=== PATIENT | female | born 1990 | race Hispanic/Latino ===

== ENCOUNTER 2021-10-31 19:28 | Inpatient (IN) | payer SELFPAY ==
[2021-10-31] MEDS ORDERED: oxyCODONE /ACETAMINOPHEN 5-325MG TAB PO ONE (23:46)
[2021-10-31] MEDS ORDERED: NEOMY 3.5 MG/BACIT 400 UNITS/POLY B 5000 UNITS/GM OINT PACKET TP ONE (23:47)
--- NOTE | 2021-11-01 00:31 | Emergency Department Report ---
ED Lower Extremity HPI - General Chief Complaint: Extremity Injury, Lower Stated Complaint: RT FOOT INJURY AT WORK Time Seen by Provider: 10/31/21 23:30 Source: patient Mode of arrival: Ambulatory Limitations: No Limitations - History of Present Illness Initial Comments: Patient is a 31-year-old female presents emergency room complaints of a fall from a ladder that occurred earlier today. Patient states that she was up approximately 20 feet on a ladder when she slipped and fell. She states that she landed directly on her feet and then had a inversion injury of her right ankle. She states that she went to [facility] and was advised that she needed to be seen in the ER due to ankle fracture. She denies any numbness or weakness and is able to move the toes. She denies ever injuring in the past. She denies any other injury. She denies hitting her head, loss of consciousness, vomiting, vision changes, numbness, weakness, bowel or bladder incontinence, back pain, neck pain, rib pain, shortness of breath, chest pain. No allergies to medications. She states her last tetanus immunization was approximately 2 years ago. She states her last menstrual cycle was 3 weeks ago and denies any possibility of . - Related Data Allergies Allergy/AdvReac Type Severity Reaction Status Date / Time No Known Allergies Allergy Unverified 10/31/21 20:58 ED Review of Systems ROS: Stated complaint: RT FOOT INJURY AT WORK Other details as noted in HPI Comment: All other systems reviewed and negative ED Past Medical Hx - Past Medical History Previous Medical History?: No - Surgical History Past Surgical History?: No ED Physical Exam - General Limitations: No Limitations General appearance: alert, in no apparent distress - Head Head exam: Present: atraumatic, normocephalic - Eye Eye exam: Present: normal appearance - ENT ENT exam: Present: mucous membranes moist - Neck Neck exam: Present: normal inspection, full ROM. Absent: tenderness, meningismus - Respiratory Respiratory exam: Present: normal lung sounds bilaterally. Absent: respiratory distress, wheezes, rales, rhonchi, stridor, chest wall tenderness, accessory muscle use, decreased breath sounds, prolonged expiratory - Cardiovascular Cardiovascular Exam: Present: regular rate, normal rhythm, normal heart sounds. Absent: systolic murmur, diastolic murmur, rubs, gallop - Extremities Exam Extremities exam: Present: other (edema present and ttp to the right ankle and foot, 0.5 cm laceration to the right lateral ankle, no active bleeding, decreased ROM, able to move toes, neurovascularly intact) - Neurological Exam Neurological exam: Present: alert, oriented X3, CN II-XII intact, normal gait. Absent: motor sensory deficit - Psychiatric Psychiatric exam: Present: normal affect, normal mood - Skin Skin exam: Present: warm, dry ED Course Vital Signs 10/31/21 11/01/21 11/01/21 20:56 02:00 05:17 Temperature 97.8 F Pulse Rate 93 H 77 88 Respiratory 18 17 17 Rate Blood Pressure 128/74 Blood Pressure 140/83 130/83 [Right] O2 Sat by Pulse 100 99 99 Oximetry - Consultations Consultation #1: 11/01/21 00:[address] Bass, orthopedic doctor regarding patient presentation and results in he reviewed imaging, advised to place patient in splint make patient n.p.o. and he will perform surgery tomorrow morning, he advised to reach out to kiln head house operator to put patient on OR board for tomorrow 11/01/21 00:45 I discussed with Ms. Hummel, kiln head house operator and gave patient's information and she is going to place her on the OR board for tomorrow 11/01/21 00:[address] Van, hospitalist regarding patient presentation and results, he will accept and resume care patient will admit to hospitalist service ED Lower Extremity MDM - Radiology Data Radiology results: report reviewed Ordering Physician: SANDRA OZUNA Date of Service: 10/31/21 Procedure(s): XR foot 2V RT Accession Number(s): [id number] cc: SANDRA OZUNA Fluoro Time In Minutes: RIGHT FOOT 2 VIEW(S) INDICATION / CLINICAL INFORMATION: fall from ladder, right ankle/foot pain COMPARISON: Right ankle same date FINDINGS: BONES / JOINT(S): Redemonstrated is the previously described fracture at the right ankle combination of the tibial metaphysis and comminuted intra-articular involvement of the tibial plafond. Additional displaced fracture of the fibula. The right foot demonstrates no additional injuries. SOFT TISSUES: No significant abnormality. ADDITIONAL FINDINGS: None. IMPRESSION: 1. No acute osseous findings involving the right foot. Redemonstrated right ankle fracture as detailed. Signer Name: Chris Pacheco II, MD Signed: 11/01/2021 12:33 AM Workstation Name: [id number] Transcribed By: GUIDO Dictated By: CHRIS PACHECO II, MD Electronically Authenticated By: CHRIS PACHECO II, MD Signed Date/Time: 11/01/2132 DD/ TD/TT: Ordering Physician: SANDRA OZUNA Date of Service: 10/31/21 Procedure(s): XR ankle 3+V RT Accession Number(s): [id number] cc: SANDRA OZUNA Fluoro Time In Minutes: RIGHT ANKLE 4 VIEW(S) INDICATION / CLINICAL INFORMATION: fall from ladder, right ankle/foot pain COMPARISON: None available. FINDINGS: BONES / JOINT(S): Severely comminuted fracture of the lower tibial metaphysis and plafond are demonstrated with accompanying transverse minimally comminuted fracture of the lower fibula at the level of the tibial plafond. Widening of the ankle mortise is present. SOFT TISSUES: Moderate bimalleolar soft tissue swelling. ADDITIONAL FINDINGS: None. IMPRESSION: Comminuted mildly displaced fracture of the lower tibial metaphysis with comminuted intra-articular involvement of the plafond. Transverse minimally comminuted fracture of the lower fibula at the level of the tibial plafond with associated minimal widening of the ankle mortise. Signer Name: Chris Pacheco II, MD Signed: 11/01/2021 12:32 AM Workstation Name: [id number] Transcribed By: GUIDO Dictated By: CHRIS PACHECO II, MD Electronically Authenticated By: CHRIS PACHECO II, MD Signed Date/Time: 11/01/2131 DD/ TD/TT: - Medical Decision Making Patient is a 31-year-old female presents emergency room complaints of a fall from a ladder that occurred earlier today. Patient states that she was up approximately 20 feet on a ladder when she slipped and fell. She states that she landed directly on her feet and then had a inversion injury of her right ankle. She states that she went to [facility] and was advised that she needed to be seen in the ER due to ankle fracture. She denies any numbness or weakness and is able to move the toes. She denies ever injuring in the past. She denies any other injury. She denies hitting her head, loss of consciousness, vomiting, vision changes, numbness, weakness, bowel or bladder incontinence, back pain, neck pain, rib pain, shortness of breath, chest pain. No allergies to medications. She states her last tetanus immunization was approximately 2 years ago. She states her last menstrual cycle was 3 weeks ago and denies any possibility of . Vitals are normal. On exam:edema present and ttp to the right ankle and foot, 0.5 cm laceration to the right lateral ankle, no active bleeding, decreased ROM, able to move toes, neurovascularly intact. X-r ay right ankle Comminuted mildly displaced fracture of the lower tibial metaphysis with comminuted intra-articular involvement of the plafond. Transverse minimally comminuted fracture of the lower fibula at the level of the tibial plafond with associated minimal widening of the ankle mortise. X-ray right foot 1. No acute osseous findings involving the right foot. Redemonstrated right ankle fr acture as detailed. Discussed case with Dr. Christopher Riley, ER attending who recommended orthopedic consultation. Spoke with Dr. Bass, orthopedic doctor regarding patient presentation and results in he reviewed imaging, advised to place patient in splint make patient n.p.o. and he will perform surgery tomorrow morning, he advised to reach out to kiln head house operator to put patient on OR board for tomorrow. I discussed with Ms. Hummel, kiln head house operator and gave patient's information and she is going to place her on the OR board for tomorrow. Discussed case with Dr. Van, hospitalist regarding patient presentation and results, he will accept and resume care patient will admit to hospitalist service. Patient given Ancef and pain medication while in the emergency department. Discussed all findings with patient who is agreeable with admission. Critical care attestation.: If time is entered above; I have spent that time in minutes in the direct care of this critically ill patient, excluding procedure time. ED Disposition Clinical Impression: Tibia/fibula fracture Qualifiers: Encounter type: initial encounter Fracture type: open Open fracture type: open type I or II Laterality: right Qualified Code(s): S82.201B - Unspecified fracture of shaft of right tibia, initial encounter for open fracture type I or II Disposition: 02 [facility] Is pt being admited?: Yes Does the pt Need Aspirin: No Condition: Stable Time of Disposition: 00:46
--- NOTE | 2021-11-01 00:36 | XRay Report ---
RIGHT ANKLE 4 VIEW(S) INDICATION / CLINICAL INFORMATION: fall from ladder, right ankle/foot pain COMPARISON: None available. FINDINGS: BONES / JOINT(S): Severely comminuted fracture of the lower tibial metaphysis and plafond are demonst rated with accompanying transverse minimally comminuted fracture of the lower fibula at the level of the tibial plafond. Widening of the ankle mortise is present. SOFT TISSUES: Moderate bimalleolar soft tissue swelling. ADDITIONAL FINDINGS: None. IMPRESSION: Comminuted mildly displaced fracture of the lower tibial metaphysis with comminuted intra-articular i nvolvement of the plafond. Transverse minimally comminuted fracture of the lower fibula at the level of the tibial plafond with associated minimal widening of the ankle mortise. Signer Name: Peter Mcclelland II, MD Signed: 11/01/2021 12:32 AM Workstation [facility]: [id number]
--- NOTE | 2021-11-01 00:37 | XRay Report ---
RIGHT FOOT 2 VIEW(S) INDICATION / CLINICAL INFORMATION: fall from ladder, right ankle/foot pain COMPARISON: Right ankle same date FINDINGS: BONES / JOINT(S): Redemonstrated is the previously described fracture at the right ankle combination of the tibial metaphysis and comminuted intra-articular involvement of the tibial plafond. Additional displaced fracture of the fibula. The right foot demonstrates no additional injuries. SOFT TISSUES: No significant abnormality. ADDITIONAL FINDINGS: None. IMPRESSION: 1. No acute osseous findings involving the right foot. Redemonstrated right ankle fracture as detaile d. Signer Name: Peter Mcclelland II, MD Signed: 11/01/2021 12:33 AM Workstation Name: [id number]
[2021-11-01] MEDS ORDERED: fentaNYL 100 MCG/2 ML INJ IV ONE (01:03)
[2021-11-01] MEDS ORDERED: ONDANSETRON 4 MG/2 ML INJ IV PRN (03:31)
[2021-11-01] MEDS ORDERED: ACETAMINOPHEN 325 MG TAB PO PRN (03:31)
[2021-11-01] MEDS ORDERED: ALBUTEROL 2.5 MG/3 ML NEBU IH PRN (03:31)
--- NOTE | 2021-11-01 03:38 | History and Physical Report ---
History of Present Illness Date of examination: 11/01/21 Date of admission: 11/01/21 Chief complaint: Right lower extremity injury Status post fall History of present illness: 31-year-old female with no significant past medical history was brought to the hospital because of a fall from a ladder that occurred earlier today. Patient states that she was up approximately 20 feet on a ladder when she slipped and fell. She states that she landed directly on her feet and then had a inversion injury of her right ankle. She states that she went to [facility] and was advised that she needed to be seen in the ER due to ankle fracture. She denies any numbness or weakness and is able to move the toes. She denies ever injuring in the past. She denies any other injury. She denies hitting her head, loss of consciousness, vomiting, vision changes, numbness, weakness, bowel or bladder incontinence, back pain, neck pain, rib pain, shortness of breath, chest pain. No allergies to medications. She states her last tetanus immunization was approximately 2 years ago. She states her last menstrual cycle was 3 weeks ago and denies any possibility of . In the emergency room patient is found to have right tibial fibular fracture/right ankle fracture. Subsequently Case discussed with Dr. Bass orthopedic surgeon, and patient is going for surgery in the morning Medications and Allergies Allergies Allergy/AdvReac Type Severity Reaction Status Date / Time No Known Allergies Allergy Unverified 10/31/21 20:58 Active Meds: Active Medications Acetaminophen (Acetaminophen 325 Mg Tab) 650 mg PO Q4H PRN PRN Reason: Pain MILD(1-3)/Fever >100.5/JACQUES Albuterol (Albuterol 2.5 Mg/3 Ml Nebu) 2.5 mg IH Q3HRT PRN PRN Reason: Shortness Of Breath Albuterol/Ipratropium (Ipratropium/Albuterol Sulfate 3 Ml Ampul.Neb) 1 ampul IH Q6HRT HANH Famotidine (Famotidine 20 Mg/2 Ml Inj) 20 mg IV BID HANH Heparin Sodium (Porcine) (Heparin 5,000 Unit/1 Ml Vial) 5,000 unit SUB-Q Q12HR HANH Hydromorphone HCl (Hydromorphone 1 Mg/1 Ml Inj) 0.5 mg IV Q3H PRN PRN Reason: Pain , Severe (7-10) Dextrose/Sodium Chloride (D5/0.45ns) 1,000 mls @ 100 mls/hr IV DIRECT HANH Morphine Sulfate (Morphine 2 Mg/1 Ml Inj) 2 mg IV Q4H PRN PRN Reason: Pain, Moderate (4-6) Ondansetron HCl (Ondansetron 4 Mg/2 Ml Inj) 4 mg IV Q8H PRN PRN Reason: Nausea And Vomiting Sodium Chloride (Sodium Chloride 0.9% 10 Ml Flush Syringe) 10 ml IV BID HANH Sodium Chloride (Sodium Chloride 0.9% 10 Ml Flush Syringe) 10 ml IV PRN PRN PRN Reason: LINE FLUSH Review of Systems All systems: negative Constitutional: other (Fall) Musculoskeletal: frequent falls (Right lower extremity injury), fractures, other Exam - Constitutional Vitals: Temp Pulse Resp BP Pulse Ox 97.8 F 93 H 18 128/74 100 10/31/21 20:56 10/31/21 20:56 10/31/21 20:56 10/31/21 20:56 10/31/21 20:56 General appearance: Present: no acute distress, well-nourished - EENT Eyes: Present: PERRL ENT: hearing intact, clear oral mucosa - Neck Neck: Present: supple, normal ROM - Respiratory Respiratory effort: normal Respiratory: bilateral: CTA - Cardiovascular Heart Sounds: Present: S1 & S2. Absent: rub, click - Extremities Extremities: pulses symmetrical, No edema Extremity abnormal: other (edema present and ttp to the right ankle and foot, 0.5 cm laceration to the right lateral ankle, no active bleeding, decreased ROM, able to move toes, neurovascularly intact)) Peripheral Pulses: within normal limits - Abdominal General gastrointestinal: Present: soft, non-tender, non-distended, normal bowel sounds Female genitourinary: Present: normal - Integumentary Integumentary: Present: clear, warm, dry - Musculoskeletal Musculoskeletal: gait normal, strength equal bilaterally - Psychiatric Psychiatric: appropriate mood/affect, intact judgment & insight - Neurologic Neurologic: CNII-XII intact, moves all extremities Assessment and Plan VTE prophylaxis?: Chemical Plan of care discussed with patient/family: Yes - Patient Problems (1) Tibia/fibula fracture Current Visit: Yes Status: Acute Qualifiers: Encounter type: initial encounter Fracture type: open Open fracture type: open type I or II Laterality: right Qualified Code(s): S82.201B - Unspecified fracture of shaft of right tibia, initial encounter for open fracture type I or II; S82.401B - Unspecified fracture of shaft of right fibula, initial encounter for open fracture type I or II Plan to address problem: Admit the patient to the medical floor. NPO. D5 half-normal saline at the rate of 100 cc/h. Morphine 2 mg IV every 4 hours as needed. Ancef 1 g IV every 8 hours. Will consult orthopedic surgeon for evaluation and possible surgery in the morning. Recheck CBC BMP in the morning (2) Fall Current Visit: Yes Status: Acute Plan to address problem: Patient is on fall precaution. PT evaluation (3) DVT prophylaxis Current Visit: Yes Status: Acute Plan to address problem: Heparin 5000 units subcu every 12 hours for DVT prophylaxis. Pepcid 20 mg IV every 12 hours for GI prophylaxis. Patient is a full code
[2021-11-01] MEDS: D5W/0.45% NACL 1,000 ML IV SCH (09:07)
[2021-11-01] MEDS: IPRATROPIUM/ALBUTEROL SULFATE 3 ML AMPUL.NEB IH SCH ×2 (09:39→14:31)
[2021-11-01] MEDS: HYDROmorphone 1 MG/1 ML INJ IV PRN ×2 (10:34→16:37)
--- NOTE | 2021-11-01 12:27 | Consultation ---
History of Present Illness - [facility] Consult date: 11/01/21 Consult reason: fracture History of present illness: ORTHOPAEDIC CONSULT Assessment: 1. Complex atypical medial malleolus fracture with significant intra-articular component along the plafond with comminution in the distal tibia. 2. Lateral mallwolus fx with minimal displacement r Recommendation: 1. Surgical stabilization with ORIF for both medial / distal tibia fractures and stabilization for the lateral malleolus fracture as well ; 2. Physical therapy with partial weightbearing on the right lower extremity x 6 weeks; 3. Appropriate pain management; 4. Possible discharge home tomorrow; will require outpatient physical therapy for the next 6 weeks following surgery Discussion: This is a 28 yo, young adult female lying in hospital bed with spli nt on right lower extremity in no acute distress. She has no complaints of pain presently. She is able to wiggle all the toes. Sensation is intact. The dressing is not changed. Ankle range of motion is unable to be tested. The x-rays show a complex distal tibia/medial malleolus fracture with both a horizontal fracture all the way across at the metadiaphysis with communication to a lower fracture line that actually enters the plafond and exits the superior medial malleolus. There appears to be comminution with no significant displacement. Lateral malleolus shows the distal fragment displaced medially. Single fracture line at the level of the joint. Medications and Allergies Allergies Allergy/AdvReac Type Severity Reaction Status Date / Time No Known Allergies Allergy Unverified 10/31/21 20:58 Home Medications Medication Instructions Recorded Confirmed Last Taken Type No Known Home Medications [No 11/01/21 11/01/21 Unknown History Reported Home Medications] Active Meds: Active Medications Acetaminophen (Acetaminophen 325 Mg Tab) 650 mg PO Q4H PRN PRN Reason: Pain MILD(1-3)/Fever >100.5/JACQUES Albuterol (Albuterol 2.5 Mg/3 Ml Nebu) 2.5 mg IH Q3HRT PRN PRN Reason: Shortness Of Breath Albuterol/Ipratropium (Ipratropium/Albuterol Sulfate 3 Ml Ampul.Neb) 1 ampul IH Q6HRT COUNT INCLUDES THE [facility] Last Admin: 11/01/21 09:39 Dose: Not Given Famotidine (Famotidine 20 Mg/2 Ml Inj) 20 mg IV BID COUNT INCLUDES THE [facility] Heparin Sodium (Porcine) (Heparin 5,000 Unit/1 Ml Vial) 5,000 unit SUB-Q Q12HR COUNT INCLUDES THE [facility] Hydromorphone HCl (Hydromorphone 1 Mg/1 Ml Inj) 0.5 mg IV Q3H PRN PRN Reason: Pain , Severe (7-10) Last Admin: 11/01/21 10:34 Dose: 0.5 mg Dextrose/Sodium Chloride (D5/0.45ns) 1,000 mls @ 100 mls/hr IV DIRECT HANH Last Admin: 11/01/21 09:07 Dose: 100 mls/hr Morphine Sulfate (Morphine 2 Mg/1 Ml Inj) 2 mg IV Q4H PRN PRN Reason: Pain, Moderate (4-6) Ondansetron HCl (Ondansetron 4 Mg/2 Ml Inj) 4 mg IV Q8H PRN PRN Reason: Nausea And Vomiting Sodium Chloride (Sodium Chloride 0.9% 10 Ml Flush Syringe) 10 ml IV BID COUNT INCLUDES THE [facility] Last Admin: 11/01/21 10:35 Dose: 10 ml Sodium Chloride (Sodium Chloride 0.9% 10 Ml Flush Syringe) 10 ml IV PRN PRN PRN Reason: LINE FLUSH
--- NOTE | 2021-11-01 14:55 | Anesthesia Consultation ---
Anesthesia Consult and Med Hx Date of service: 11/01/21 - Airway Anesthetic Teeth Evaluation: Poor, Chipped (some chipped, missing teeth) ROM Head & Neck: Adequate Mental/Hyoid Distance: Adequate Mallampati Class: Class II Intubation Access Assessment: Probably Good - Pre-Operative Health Status ASA Pre-Surgery Classification: ASA2 Proposed Anesthetic Plan: General - Pulmonary Hx Smoking: Yes (1/2 pack/day x 15 years) - Central Nervous System Hx Back Pain: No (right ankle fracture) Hx Psychiatric Problems: No
--- NOTE | 2021-11-01 14:57 | Anesthesia Day of Surgery ---
Anesthesia Day of Surgery - Day of Surgery Patient Examined: Yes Patient H&P Reviewed: Yes Patient is NPO: Yes
[2021-11-01] MEDS: HEPARIN 5,000 UNIT/1 ML VIAL SUB-Q SCH ×2 (16:36→22:13)
[2021-11-01] MEDS: FAMOTIDINE 20 MG/2 ML INJ IV SCH ×2 (16:37→22:13)
--- NOTE | 2021-11-01 18:36 | Progress Note ---
Assessment and Plan Assessment and plan: --Right lower tibia/fibula fracture Current Visit: Yes Status: Acute Complex atypical medial malleolus fracture: with significant intra-articular involving distal tibia and lateral malleolus fracture with minimal displacement Orthopedic evaluated and recommended surgical stabilization and ORIF for both medial and distal tibial fracture and stabilization for the lateral malleolus fracture as well, Followed by physical therapy However unable to schedule today due to OR scheduling Patient will be scheduled for procedure tomorrow N.p.o. from midnight Postoperative care and PT OT evaluation after surgery --H/O fall Current Visit: Yes Status: Acute Patient is on fall precaution. PT, OT evaluation For surgical procedure --Ongoing tobacco use; Current Visit: Yes Status: Acute Smoking cessation counseling Risks and consequences of long-term smoking discussed with the patient Had many questions answered all of them Smoking cessation counseling +25 minutes --DVT prophylaxis--advance care planning Current Visit: Yes Status: Acute Hold Heparin 5000 units subcu every 12 hours pending procedure SCDs Prolonged care 35 minutes --Advance care planning; I discussed in detail with the patient, patient's condition, tests and reports I also explained orthopedic evaluation, recommendation, possible surgical procedure tomorrow I discussed postoperative care, I discussed rehabilitation, physical therapy, Occupational Therapy post procedure I discussed risks and consequences of ongoing tobacco use, I discussed high risk for coronary artery disease, lung cancer, COPD I discussed smoking cessation, advised nicotine patch as needed Patient verbalized understanding, had many questions answered all of them Additional time +35 minutes History Interval history: I have seen and examined the patient at the bedside Patient's chart and medications reviewed Patient had history of fall and sustained a tibial fracture Complex atypical medial malleolus fracture with significant intra-articular involving distal tibia and lateral malleolus fracture with minimal displacement Orthopedic evaluated and recommended surgical stabilization and ORIF for both medial and distal tibial fracture and stabilization for the lateral malleolus fracture as well Followed by physical therapy Hospitalist Physical - Constitutional Vitals: Temp Pulse Resp BP Pulse Ox 97.7 F 82 16 136/92 99 11/01/21 13:49 11/01/21 13:49 11/01/21 13:49 11/01/21 13:49 11/01/21 13:49 General appearance: Present: no acute distress, well-nourished - EENT Eyes: Present: PERRL, EOM intact - Neck Neck: Present: supple, normal ROM - Respiratory Respiratory effort: normal Respiratory: bilateral: diminished, negative: rales, rhonchi, wheezing - Cardiovascular Rhythm: regular Heart Sounds: Present: S1 & S2 - Extremities Extremities: abnormal (Fracture right ankle[lower end of tibia-fibula] dressing in place) - Abdominal General gastrointestinal: soft, non-tender, non-distended, normal bowel sounds - Integumentary Integumentary: Present: clear (A day), warm (GI started clear liquids adding Dr. Pacheco is not planning any endoscopy bronchoscopy because of Covid or something else that is why he said he will not is no new episodes and Dr. Dr. Chan also signed off so I started with clear liquids advancing tomorrow PT OT evaluation 55 still above you so step) - Psychiatric Psychiatric: appropriate mood/affect, cooperative - Neurologic Neurologic: moves all extremities Results Mcdonough/IV: Voiding Method Toilet Active Medications - Current Medications Current Medications: Generic Name Dose Route Start Last Admin Trade Name Freq PRN Reason Stop Dose Admin Acetaminophen 650 mg 11/01/21 03:31 Acetaminophen 325 Mg Tab PO Q4H PRN Pain MILD(1-3)/Fever >100.5/JACQUES Albuterol 2.5 mg 11/01/21 03:31 Albuterol 2.5 Mg/3 Ml Nebu IH Q3HRT PRN Shortness Of Breath Albuterol/Ipratropium 1 ampul 11/01/21 08:00 11/01/21 14:31 Ipratropium/Albuterol Sulfate 3 Ml Ampul.Neb IH Not Given Q6HRT HANH Famotidine 20 mg 11/01/21 10:00 11/01/21 16:37 Famotidine 20 Mg/2 Ml Inj IV 20 mg BID HANH Administration Heparin Sodium (Porcine) 5,000 unit 11/01/21 10:00 11/01/21 16:36 Heparin 5,000 Unit/1 Ml Vial SUB-Q 5,000 unit Q12HR HANH Administration Hydromorphone HCl 0.5 mg 11/01/21 03:31 11/01/21 16:37 Hydromorphone 1 Mg/1 Ml Inj IV 0.5 mg Q3H PRN Administration Pain , Severe (7-10) Dextrose/Sodium Chloride 1,000 mls @ 100 mls/hr 11/01/21 04:00 11/01/21 09:07 D5/0.45ns IV 100 mls/hr DIRECT HANH Administration Morphine Sulfate 2 mg 11/01/21 03:31 Morphine 2 Mg/1 Ml Inj IV Q4H PRN Pain, Moderate (4-6) Ondansetron HCl 4 mg 11/01/21 03:31 Ondansetron 4 Mg/2 Ml Inj IV Q8H PRN Nausea And Vomiting Sodium Chloride 10 ml 11/01/21 10:00 11/01/21 10:35 Sodium Chloride 0.9% 10 Ml Flush Syringe IV 10 ml BID HANH Administration Sodium Chloride 10 ml 11/01/21 03:31 Sodium Chloride 0.9% 10 Ml Flush Syringe IV PRN PRN LINE FLUSH
[2021-11-01] MEDS: MORPHINE 2 MG/1 ML INJ IV PRN (23:56)
[2021-11-02] MEDS: IPRATROPIUM/ALBUTEROL SULFATE 3 ML AMPUL.NEB IH SCH ×4 (01:47→20:04)
[2021-11-02] MEDS: HYDROmorphone 1 MG/1 ML INJ IV PRN ×2 (02:29→05:27)
[2021-11-02 08:01] LABS: Basophils % (Auto) 0.5 % (0.0-1.8); Eosinophils # (Auto) 0.1 K/mm3 (0.0-0.4); Eosinophils % (Auto) 1.2 % (0.0-4.3); Hemoglobin 11.8 gm/dl (10.1-14.3); Lymphocytes # (Auto) 1.5 K/mm3 (1.2-5.4); Lymphocytes % (Auto) 17.9 % (13.4-35.0); Monocytes # (Auto) 0.6 K/mm3 (0.0-0.8); Monocytes % (Auto) 6.7 % (0.0-7.3)
[2021-11-02 08:26] LABS: BUN/Creatinine Ratio 24; Blood Urea Nitrogen 12 mg/dL (7-17); Calcium 8.3 mg/dL (8.4-10.2); Hemolysis Index 6
[2021-11-02 09:36] LABS: Hematocrit 36.3 % (30.3-42.9); Mean Corpuscular HGB Conc 33 % (30-34); Mean Corpuscular Volume 89 fl (79-97); Platelet Count 261 K/mm3 (140-440); Red Blood Count 4.09 M/mm3 (3.65-5.03); Red Cell Distribution Width 13.8 % (13.2-15.2)
--- NOTE | 2021-11-02 09:52 | Progress Note ---
Assessment and Plan Assessment and plan: --Right lower tibia/fibula fracture Current Visit: Yes Status: Acute Complex atypical medial malleolus fracture: with significant intra-articular inv olving distal tibia and lateral malleolus fracture with minimal displacement Orthopedic evaluated and recommended surgical stabilization and ORIF for both medial and distal tibial fracture and stabilization for the lateral malleolus fracture as well, Followed by physical therapy However unable to schedule today due to OR scheduling Patient will be scheduled for procedure tomorrow N.p.o. from midnight Postoperative care and PT OT evaluation after surgery --H/O fall Current Visit: Yes Status: Acute Patient is on fall precaution. PT, OT evaluation For surgical procedure --Ongoing tobacco use; Current Visit: Yes Status: Acute Smoking cessation counseling Risks and consequences of long-term smoking discussed with the patient Had many questions answered all of them Smoking cessation counseling +25 minutes --DVT prophylaxis--advance care planning Current Visit: Yes Status: Acute Hold Heparin 5000 units subcu every 12 hours pending procedure SCDs Prolonged care 35 minutes --Advance care planning; I discussed in detail with the patient, patient's condition, tests and reports I also explained orthopedic evaluation, recommendation, possible surgical procedure tomorrow I discussed postoperative care, I discussed rehabilitation, physical therapy, Occupational Therapy post procedure I discussed risks and consequences of ongoing tobacco use, I discussed high risk for coronary artery disease, lung cancer, COPD I discussed smoking cessation, advised nicotine patch as needed Patient verbalized understanding, had many questions answered all of them Additional time +35 minutes 11/02/2021; patient scheduled for surgical stabilization and ORIF Follow surgical procedure and recommendations Continue current management History Interval history: Patient scheduled for ORIF and internal fixation of ankle today Patient has history of right lower tibia fibular fracture secondary to fall Patient feels better complains of some pain Patient is n.p.o. status Hospitalist Physical - Constitutional Vitals: Temp Pulse Resp BP Pulse Ox 98.4 F 106 H 19 134/81 100 11/02/21 05:08 11/02/21 08:17 11/02/21 08:17 11/02/21 05:08 11/02/21 08:18 General appearance: Present: no acute distress, well-nourished - EENT Eyes: Present: PERRL, EOM intact - Neck Neck: Present: supple, normal ROM - Respiratory Respiratory effort: normal Respiratory: bilateral: diminished, negative: rales, rhonchi, wheezing - Cardiovascular Rhythm: regular Heart Sounds: Present: S1 & S2 - Extremities Extremities: no ischemia, No edema, abnormal (Right ankle increasing) - Abdominal General gastrointestinal: soft, non-tender, non-distended, normal bowel sounds - Integumentary Integumentary: Present: clear, warm - Psychiatric Psychiatric: appropriate mood/affect, cooperative - Neurologic Neurologic: moves all extremities Results - Labs CBC & Chem 7: 11/02/21 07:30 11/02/21 07:30 Labs: Laboratory Last Values WBC 8.6 K/mm3 (4.5-11.0) 11/02/21 07:30 RBC 4.09 M/mm3 (3.65-5.03) 11/02/21 07:30 Hgb 11.8 gm/dl (10.1-14.3) 11/02/21 07:30 Hct 36.3 % (30.3-42.9) 11/02/21 07:30 MCV 89 fl (79-97) 11/02/21 07:30 MCH 29 pg (28-32) 11/02/21 07:30 MCHC 33 % (30-34) 11/02/21 07:30 RDW 13.8 % (13.2-15.2) 11/02/21 07:30 Plt Count 261 K/mm3 (140-440) 11/02/21 07:30 Lymph % (Auto) 17.9 % (13.4-35.0) 11/02/21 07:30 [place] % (Auto) 6.7 % (0.0-7.3) 11/02/21 07:30 Eos % (Auto) 1.2 % (0.0-4.3) 11/02/21 07:30 Baso % (Auto) 0.5 % (0.0-1.8) 11/02/21 07:30 Lymph # (Auto) 1.5 K/mm3 (1.2-5.4) 11/02/21 07:30 [place] # (Auto) 0.6 K/mm3 (0.0-0.8) 11/02/21 07:30 Eos # (Auto) 0.1 K/mm3 (0.0-0.4) 11/02/21 07:30 Baso # (Auto) 0.0 K/mm3 (0.0-0.1) 11/02/21 07:30 Seg Neutrophils % 73.7 % (40.0-70.0) H 11/02/21 07:30 Seg Neutrophils # 6.3 K/mm3 (1.8-7.7) 11/02/21 07:30 Sodium 141 mmol/L (137-145) 11/02/21 07:30 Potassium 3.8 mmol/L (3.6-5.0) 11/02/21 07:30 Chloride 103.9 mmol/L (98-107) 11/02/21 07:30 Carbon Dioxide 24 mmol/L (22-30) 11/02/21 07:30 Anion Gap 17 mmol/L 11/02/21 07:30 BUN 12 mg/dL (7-17) 11/02/21 07:30 Creatinine 0.5 mg/dL (0.6-1.2) L 11/02/21 07:30 Estimated GFR > 60 ml/min 11/02/21 07:30 BUN/Creatinine Ratio 24 % 11/02/21 07:30 Glucose 98 mg/dL (65-100) 11/02/21 07:30 Calcium 8.3 mg/dL (8.4-10.2) L 11/02/21 07:30 Mcdonough/IV: Voiding Method Toilet Active Medications - Current Medications Current Medications: Generic Name Dose Route Start Last Admin Trade Name Freq PRN Reason Stop Dose Admin Acetaminophen 650 mg 11/01/21 03:31 Acetaminophen 325 Mg Tab PO Q4H PRN Pain MILD(1-3)/Fever >100.5/JACQUES Albuterol 2.5 mg 11/01/21 03:31 Albuterol 2.5 Mg/3 Ml Nebu IH Q3HRT PRN Shortness Of Breath Albuterol/Ipratropium 1 ampul 11/01/21 08:00 11/02/21 08:16 Ipratropium/Albuterol Sulfate 3 Ml Ampul.Neb IH 1 ampul Q6HRT HANH Administration Famotidine 20 mg 11/01/21 10:00 11/01/21 22:13 Famotidine 20 Mg/2 Ml Inj IV 20 mg BID HANH Administration Heparin Sodium (Porcine) 5,000 unit 11/01/21 10:00 11/01/21 22:13 Heparin 5,000 Unit/1 Ml Vial SUB-Q 5,000 unit Q12HR HANH Administration Hydromorphone HCl 0.5 mg 11/01/21 03:31 11/02/21 05:27 Hydromorphone 1 Mg/1 Ml Inj IV 0.5 mg Q3H PRN Administration Pain , Severe (7-10) Dextrose/Sodium Chloride 1,000 mls @ 100 mls/hr 11/01/21 04:00 11/01/21 09:07 D5/0.45ns IV 100 mls/hr DIRECT HANH Administration Morphine Sulfate 2 mg 11/01/21 03:31 11/01/21 23:56 Morphine 2 Mg/1 Ml Inj IV 2 mg Q4H PRN Administration Pain, Moderate (4-6) Ondansetron HCl 4 mg 11/01/21 03:31 Ondansetron 4 Mg/2 Ml Inj IV Q8H PRN Nausea And Vomiting Sodium Chloride 10 ml 11/01/21 10:00 11/01/21 22:13 Sodium Chloride 0.9% 10 Ml Flush Syringe IV 10 ml BID HANH Administration Sodium Chloride 10 ml 11/01/21 03:31 Sodium Chloride 0.9% 10 Ml Flush Syringe IV PRN PRN LINE FLUSH
[2021-11-02] MEDS: HEPARIN 5,000 UNIT/1 ML VIAL SUB-Q SCH ×2 (10:02→23:01)
[2021-11-02] MEDS: FAMOTIDINE 20 MG/2 ML INJ IV SCH ×2 (10:03→23:01)
[2021-11-02] MEDS ORDERED: NEOMY 40 MG/POLYMYXIN B 200,000 UNITS/ML (GU) AMPULE IR ONE ×2 (10:44→11:59)
[2021-11-02] MEDS ORDERED: fentaNYL 100 MCG/2 ML INJ ONE (11:02)
[2021-11-02] MEDS ORDERED: propofoL 200 MG/20 ML VIAL IV ONE (11:02)
[2021-11-02] MEDS ORDERED: LIDOCAINE MPF (2%) 20 MG/1 ML VIAL 5 ML ONE (11:02)
[2021-11-02] MEDS ORDERED: MIDAZOLAM 2 MG/2 ML INJ ONE (11:02)
[2021-11-02] MEDS ORDERED: KETAMINE/STERILE WATER 50 MG/ML SYRINGE ONE (11:03)
[2021-11-02] MEDS ORDERED: ONDANSETRON 4 MG/2 ML INJ ONE (11:03)
[2021-11-02] MEDS ORDERED: dexAMETHasone 20 MG/5 ML VIAL ONE (11:03)
[2021-11-02] MEDS ORDERED: SODIUM CHLORIDE 0.9% IRR 1,500 ML BOTTLE IR ONE (11:59)
[2021-11-02] MEDS ORDERED: LACTATED RINGERS 1,000 ML ONE (12:52)
[2021-11-02] MEDS ORDERED: oxyCODONE /ACETAMINOPHEN 5-325MG TAB PO PRN (13:10)
--- NOTE | 2021-11-02 13:25 | Post Anesthesia Evaluation ---
- Post Anesthesia Evaluation Patient Participated: Yes Airway Patent: Yes Stable Respiratory Function: Yes Nausea/Vomiting: No Temp > 96.8F: Yes Pain Manageable: Yes Adequeate Hydration: Yes Anesthesia Complications: No Block Receding Appropriately: Not Applicable Patient on Ventilator: No
--- NOTE | 2021-11-02 13:49 | XRay Report ---
INTRAOPERATIVE FLUOROSCOPY: RIGHT ANKLE INDICATION / CLINICAL INFORMATION: RT ANKLE FRACTURE. TECHNIQUE: Intraoperative spot images were obtained during the procedure. FINDINGS: Intraoperative radiographs from fixation for right ankle fracture. Fluoroscopy Time: 0.5 minute. Fluoroscopy Images: 3. Signer Name: Yossi Mitchell DO Signed: 11/02/2021 1:45 PM Workstation Name: [email or web address] ([id number]
[2021-11-02] MEDS ORDERED: HYDROmorphone 1 MG/1 ML INJ IV PRN (14:00)
--- NOTE | 2021-11-02 14:05 | Operative Report ---
Operative Report Operative Report: Preop diagnosis : 1. Complex Distal tibia fracture with Medial malleolar fracture incl. plafond fracture with comminution, Right ankle 2. transverse fracture lateral malleolus minimal displacement, RIGHT ankle Postop diagnosis: Same 1. Same Procedure: Closed reduction and Application of Ex-Fix device ([employer]) Surgeon: Diallo Bass MD undertaker assistant: none Anesthesia: General with LMA Details of operative technique: Patient was brought from the floor to the holding area and then prepared and taken to the operating room without difficulty. She was placed in the supine position on the OR table. General anesthesia was administered utilizing an LMA. Pressure points were well-padded. The right lower extremity was then prepped and draped in usual sterile fashion with ChloraPrep solution from the toes to the knee. A timeout was then called by the circulating nurse and once again the correct site was identified. C arm images were utilized throughout the case. C arm fluoroscopy images showed what appeared to be a comminuted distal tibia fracture with an oblique fracture line just above the medial malleolus proceeding down to the plafond entering the joint. There was a small nondisplaced fracture line seen within the metadiaphysis of the distal tibia. Minimal displacement. The fibula showed a distal transverse fracture in the lateral malleolus at the level of the joint line with minimal displacement. Fracture was manipulated by applying longitudinal traction and slight medial thrust with C arm images showing acceptable alignment. There was no further widening of the fracture line at the plafond. It was therefore decided that a external fixator device would be utilized to best stabilize this fracture. Utilizing the external FIX system made by [employer], a single 5mm calcaneal threaded pin was placed in the calcaneus appropriately under fluoroscopic control. 2 other separate proximal pins were placed (5mm ) into the anterior crest of the midshaft tibial diaphysis. Parallel bars were then placed from the to upper pins down to the calcaneal pins forming a triangle while traction and a close reduction maneuver were carried out with the ophthalmology assistant holding until all of the bars were clamped and tightened. AP/ lateral /mortise views were taken which showed excellent maintenance of the alignment for the distal tibia/plafond fracture. Final tightening of all screws was then secured utilizing a custom made wrench. It should also be noted that a semicircle lauren was placed posteriorly to act as a kickstand to protect against heel/foot bedsores. Pin sites were then dressed with Xeroform dressing and 4 x 4 gauzes followed by a Kerlix wrap from the toes to the upper tibia. This was also covered with an James wrap and the pins were all covered with soft plastic stoppers. Final x-rays were taken and saved. These showed excellent maintenance of the reduction. The patient was then awakened and taken to recovery room in excellent condition. Estimated blood loss: Negligible Drains : None Complications: None Tourniquet time: Not utilized
[2021-11-02] MEDS: MORPHINE 2 MG/1 ML INJ IV PRN ×2 (16:45→23:05)
[2021-11-03] MEDS: IPRATROPIUM/ALBUTEROL SULFATE 3 ML AMPUL.NEB IH SCH ×4 (02:58→21:33)
[2021-11-03] MEDS: MORPHINE 2 MG/1 ML INJ IV PRN (04:17)
[2021-11-03] MEDS: D5W/0.45% NACL 1,000 ML IV SCH (04:19)
[2021-11-03] MEDS: HEPARIN 5,000 UNIT/1 ML VIAL SUB-Q SCH ×2 (09:47→22:48)
[2021-11-03] MEDS: FAMOTIDINE 20 MG/2 ML INJ IV SCH ×2 (09:47→22:48)
--- NOTE | 2021-11-03 12:15 | Progress Note ---
Assessment and Plan Assessment and plan: Complex Distal tibia fracture with Medial malleolar fracture incl. plafond fracture with comminution, Right ankle 2transverse fracture lateral malleolus minimal displacement RIGHT ankle Postop diagnosis: Same 1. Same Procedure: Closed reduction and Application of Ex-Fix device ([place]) --Right lower tibia/fibula fracture Current Visit: Yes Status: Acute Complex atypical medial malleolus fracture: with significant intra-articular involving distal tibia and lateral malleolus fracture with minimal displacement Orthopedic evaluated and recommended surgical stabilization and ORIF for both medial and distal tibial fracture and stabilization for the lateral malleolus fracture as well, Followed by physical therapy However unable to schedule today due to OR scheduling Patient will be scheduled for procedure tomorrow N.p.o. from midnight Postoperative care and PT OT evaluation after surgery --H/O fall Current Visit: Yes Status: Acute Patient is on fall precaution. PT, OT evaluation For surgical procedure --Ongoing tobacco use; Current Visit: Yes Status: Acute Smoking cessation counseling Risks and consequences of long-term smoking discussed with the patient Had many questions answered all of them Smoking cessation counseling +25 minutes --DVT prophylaxis--advance care planning Current Visit: Yes Status: Acute Hold Heparin 5000 units subcu every 12 hours pending procedure SCDs Prolonged care 35 minutes --Advance care planning; I discussed in detail with the patient, patient's condition, tests and reports I also explained orthopedic evaluation, recommendation, possible surgical procedure tomorrow I discussed postoperative care, I discussed rehabilitation, physical therapy, Occupational Therapy post procedure I discussed risks and consequences of ongoing tobacco use, I discussed high risk for coronary artery disease, lung cancer, COPD I discussed smoking cessation, advised nicotine patch as needed Patient verbalized understanding, had many questions answered all of them Additional time +35 minutes 11/02/2021; patient scheduled for surgical stabilization and ORIF Follow surgical procedure and recommendations Continue current management 11/03; continue postop care, physical therapy, pain management Ortho following History Interval history: S/P Closed reduction and Application of Ex-Fix device ([place]) Hospitalist Physical - Constitutional Vitals: Temp Pulse Resp BP Pulse Ox 98.4 F 93 H 20 128/72 96 11/03/21 04:26 11/03/21 09:26 11/03/21 09:26 11/03/21 04:26 11/03/21 08:30 General appearance: Present: no acute distress, well-nourished - EENT Eyes: Present: PERRL, EOM intact, scleral icterus - Neck Neck: Present: supple, normal ROM - Cardiovascular Rhythm: regular Heart Sounds: Present: S1 & S2 - Extremities Extremities: abnormal (Closed reduction and application of ex-fix device) - Abdominal General gastrointestinal: soft, non-tender, non-distended, normal bowel sounds - Integumentary Integumentary: Present: decreased turgor (Right lower extremity postsurgical findings) - Psychiatric Psychiatric: appropriate mood/affect, cooperative - Neurologic Neurologic: moves all extremities Results - Labs CBC & Chem 7: 11/02/21 07:30 11/02/21 07:30 Labs: Laboratory Last Values WBC 8.6 K/mm3 (4.5-11.0) 11/02/21 07:30 RBC 4.09 M/mm3 (3.65-5.03) 11/02/21 07:30 Hgb 11.8 gm/dl (10.1-14.3) 11/02/21 07:30 Hct 36.3 % (30.3-42.9) 11/02/21 07:30 MCV 89 fl (79-97) 11/02/21 07:30 MCH 29 pg (28-32) 11/02/21 07:30 MCHC 33 % (30-34) 11/02/21 07:30 RDW 13.8 % (13.2-15.2) 11/02/21 07:30 Plt Count 261 K/mm3 (140-440) 11/02/21 07:30 Lymph % (Auto) 17.9 % (13.4-35.0) 11/02/21 07:30 [place] % (Auto) 6.7 % (0.0-7.3) 11/02/21 07:30 Eos % (Auto) 1.2 % (0.0-4.3) 11/02/21 07:30 Baso % (Auto) 0.5 % (0.0-1.8) 11/02/21 07:30 Lymph # (Auto) 1.5 K/mm3 (1.2-5.4) 11/02/21 07:30 [place] # (Auto) 0.6 K/mm3 (0.0-0.8) 11/02/21 07:30 Eos # (Auto) 0.1 K/mm3 (0.0-0.4) 11/02/21 07:30 Baso # (Auto) 0.0 K/mm3 (0.0-0.1) 11/02/21 07:30 Seg Neutrophils % 73.7 % (40.0-70.0) H 11/02/21 07:30 Seg Neutrophils # 6.3 K/mm3 (1.8-7.7) 11/02/21 07:30 Sodium 141 mmol/L (137-145) 11/02/21 07:30 Potassium 3.8 mmol/L (3.6-5.0) 11/02/21 07:30 Chloride 103.9 mmol/L (98-107) 11/02/21 07:30 Carbon Dioxide 24 mmol/L (22-30) 11/02/21 07:30 Anion Gap 17 mmol/L 11/02/21 07:30 BUN 12 mg/dL (7-17) 11/02/21 07:30 Creatinine 0.5 mg/dL (0.6-1.2) L 11/02/21 07:30 Estimated GFR > 60 ml/min 11/02/21 07:30 BUN/Creatinine Ratio 24 % 11/02/21 07:30 Glucose 98 mg/dL (65-100) 11/02/21 07:30 Calcium 8.3 mg/dL (8.4-10.2) L 11/02/21 07:30 Mcdonough/IV: Voiding Method Toilet Active Medications - Current Medications Current Medications: Generic Name Dose Route Start Last Admin Trade Name Freq PRN Reason Stop Dose Admin Acetaminophen 650 mg 11/01/21 03:31 Acetaminophen 325 Mg Tab PO Q4H PRN Pain MILD(1-3)/Fever >100.5/JACQUES Albuterol 2.5 mg 11/01/21 03:31 Albuterol 2.5 Mg/3 Ml Nebu IH Q3HRT PRN Shortness Of Breath Albuterol/Ipratropium 1 ampul 11/01/21 08:00 11/03/21 09:26 Ipratropium/Albuterol Sulfate 3 Ml Ampul.Neb IH 1 ampul Q6HRT HANH Administration Famotidine 20 mg 11/01/21 10:00 11/03/21 09:47 Famotidine 20 Mg/2 Ml Inj IV 20 mg BID HANH Administration Heparin Sodium (Porcine) 5,000 unit 11/01/21 10:00 11/03/21 09:47 Heparin 5,000 Unit/1 Ml Vial SUB-Q 5,000 unit Q12HR HANH Administration Hydromorphone HCl 0.5 mg 11/01/21 03:31 11/02/21 05:27 Hydromorphone 1 Mg/1 Ml Inj IV 0.5 mg Q3H PRN Administration Pain , Severe (7-10) Dextrose/Sodium Chloride 1,000 mls @ 100 mls/hr 11/01/21 04:00 11/03/21 04:19 D5/0.45ns IV 100 mls/hr DIRECT HANH Administration Morphine Sulfate 2 mg 11/01/21 03:31 11/03/21 04:17 Morphine 2 Mg/1 Ml Inj IV 2 mg Q4H PRN Administration Pain, Moderate (4-6) Ondansetron HCl 4 mg 11/01/21 03:31 Ondansetron 4 Mg/2 Ml Inj IV Q8H PRN Nausea And Vomiting Oxycodone/Acetaminophen 1 tab 11/02/21 13:10 Oxycodone /Acetaminophen 5-325mg Tab PO Q6H PRN Pain, Moderate (4-6) Sodium Chloride 10 ml 11/01/21 10:00 11/03/21 09:47 Sodium Chloride 0.9% 10 Ml Flush Syringe IV 10 ml BID HANH Administration Sodium Chloride 10 ml 11/01/21 03:31 Sodium Chloride 0.9% 10 Ml Flush Syringe IV PRN PRN LINE FLUSH
[2021-11-04] MEDS: IPRATROPIUM/ALBUTEROL SULFATE 3 ML AMPUL.NEB IH SCH ×3 (01:35→14:44)
[2021-11-04 05:43] VITALS: BP 120/77
[2021-11-04] MEDS ORDERED: FAMOTIDINE 20 MG TAB PO SCH (10:00)
[2021-11-04] MEDS: HEPARIN 5,000 UNIT/1 ML VIAL SUB-Q SCH (10:02)
--- NOTE | 2021-11-04 14:53 | Progress Note ---
Assessment and Plan Assessment and plan: Complex Distal tibia fracture with Medial malleolar fracture incl. plafond fracture with comminution, Right ankle 2transverse fracture lateral malleolus minimal displacement RIGHT ankle Postop diagnosis: Same 1. Same Procedure: Closed reduction and Application of Ex-Fix device ([place]) --Right lower tibia/fibula fracture Current Visit: Yes Status: Acute Complex atypical medial malleolus fracture: with significant intra-articular involving distal tibia and lateral malleolus fracture with minimal displacement Orthopedic evaluated and recommended surgical stabilization and ORIF for both medial and distal tibial fracture and stabilization for the lateral malleolus fracture as well, Followed by physical therapy However unable to schedule today due to OR scheduling Patient will be scheduled for procedure tomorrow N.p.o. from midnight Postoperative care and PT OT evaluation after surgery --H/O fall Current Visit: Yes Status: Acute Patient is on fall precaution. PT, OT evaluation For surgical procedure --Ongoing tobacco use; Current Visit: Yes Status: Acute Smoking cessation counseling Risks and consequences of long-term smoking discussed with the patient Had many questions answered all of them Smoking cessation counseling +25 minutes --DVT prophylaxis--advance care planning Current Visit: Yes Status: Acute Hold Heparin 5000 units subcu every 12 hours pending procedure SCDs Follow orthopedic surgeon treatment/discharge planning and recommendations DC when cleared by --Advance care planning; I discussed in detail with the patient, patient's condition, tests and reports I also explained orthopedic evaluation, recommendation, possible surgical procedure tomorrow I discussed postoperative care, I discussed rehabilitation, physical therapy, Occupational Therapy post procedure I discussed risks and consequences of ongoing tobacco use, I discussed high risk for coronary artery disease, lung cancer, COPD I discussed smoking cessation, advised nicotine patch as needed Patient verbalized understanding, had many questions answered all of them Additional time +35 minutes 11/02/2021; patient scheduled for surgical stabilization and ORIF Follow surgical procedure and recommendations Continue current management 11/03; continue postop care, physical therapy, pain management Ortho following 11/04; continue current management, PT evaluation noted and appreciated Discharge when stable and cleared by orthopedic surgeon History Interval history: I have seen and examined the patient at the bedside Patient's chart and medications reviewed Patient feels slightly better has some pain in the ankle Vital signs noted Hospitalist Physical - Constitutional Vitals: Temp Pulse Resp BP Pulse Ox 98.0 F 118 H 18 120/77 97 11/04/21 05:43 11/04/21 07:48 11/04/21 10:00 11/04/21 05:43 11/04/21 10:00 General appearance: Present: no acute distress, well-nourished - EENT Eyes: Present: PERRL, EOM intact - Neck Neck: Present: supple, normal ROM - Respiratory Respiratory effort: normal Respiratory: bilateral: diminished, negative: rales, rhonchi, wheezing - Cardiovascular Rhythm: regular Heart Sounds: Present: S1 & S2 - Extremities Extremities: no ischemia, No edema, abnormal (Right lower extremity s/p closed reduction and application of exfix device/Sneha) - Abdominal General gastrointestinal: soft, non-tender, non-distended - Integumentary Integumentary: Present: clear, warm - Psychiatric Psychiatric: appropriate mood/affect, agitated - Neurologic Neurologic: moves all extremities Results - Labs CBC & Chem 7: 11/02/21 07:30 11/02/21 07:30 Labs: Laboratory Last Values WBC 8.6 K/mm3 (4.5-11.0) 11/02/21 07:30 RBC 4.09 M/mm3 (3.65-5.03) 11/02/21 07:30 Hgb 11.8 gm/dl (10.1-14.3) 11/02/21 07:30 Hct 36.3 % (30.3-42.9) 11/02/21 07:30 MCV 89 fl (79-97) 11/02/21 07:30 MCH 29 pg (28-32) 11/02/21 07:30 MCHC 33 % (30-34) 11/02/21 07:30 RDW 13.8 % (13.2-15.2) 11/02/21 07:30 Plt Count 261 K/mm3 (140-440) 11/02/21 07:30 Lymph % (Auto) 17.9 % (13.4-35.0) 11/02/21 07:30 Weber % (Auto) 6.7 % (0.0-7.3) 11/02/21 07:30 Eos % (Auto) 1.2 % (0.0-4.3) 11/02/21 07:30 Baso % (Auto) 0.5 % (0.0-1.8) 11/02/21 07:30 Lymph # (Auto) 1.5 K/mm3 (1.2-5.4) 11/02/21 07:30 Weber # (Auto) 0.6 K/mm3 (0.0-0.8) 11/02/21 07:30 Eos # (Auto) 0.1 K/mm3 (0.0-0.4) 11/02/21 07:30 Baso # (Auto) 0.0 K/mm3 (0.0-0.1) 11/02/21 07:30 Seg Neutrophils % 73.7 % (40.0-70.0) H 11/02/21 07:30 Seg Neutrophils # 6.3 K/mm3 (1.8-7.7) 11/02/21 07:30 Sodium 141 mmol/L (137-145) 11/02/21 07:30 Potassium 3.8 mmol/L (3.6-5.0) 11/02/21 07:30 Chloride 103.9 mmol/L (98-107) 11/02/21 07:30 Carbon Dioxide 24 mmol/L (22-30) 11/02/21 07:30 Anion Gap 17 mmol/L 11/02/21 07:30 BUN 12 mg/dL (7-17) 11/02/21 07:30 Creatinine 0.5 mg/dL (0.6-1.2) L 11/02/21 07:30 Estimated GFR > 60 ml/min 11/02/21 07:30 BUN/Creatinine Ratio 24 % 11/02/21 07:30 Glucose 98 mg/dL (65-100) 11/02/21 07:30 Calcium 8.3 mg/dL (8.4-10.2) L 11/02/21 07:30 Mcdonough/IV: Voiding Method Toilet Active Medications - Current Medications Current Medications: Generic Name Dose Route Start Last Admin Trade Name Freq PRN Reason Stop Dose Admin Acetaminophen 650 mg 11/01/21 03:31 Acetaminophen 325 Mg Tab PO Q4H PRN Pain MILD(1-3)/Fever >100.5/JACQUES Albuterol 2.5 mg 11/01/21 03:31 Albuterol 2.5 Mg/3 Ml Nebu IH Q3HRT PRN Shortness Of Breath Albuterol/Ipratropium 1 ampul 11/01/21 08:00 11/04/21 14:44 Ipratropium/Albuterol Sulfate 3 Ml Ampul.Neb IH Not Given Q6HRT HANH Famotidine 20 mg 11/04/21 10:00 11/04/21 10:02 Famotidine 20 Mg Tab PO 20 mg BID HANH Administration Heparin Sodium (Porcine) 5,000 unit 11/01/21 10:00 11/04/21 10:02 Heparin 5,000 Unit/1 Ml Vial SUB-Q 5,000 unit Q12HR HANH Administration Hydromorphone HCl 0.5 mg 11/01/21 03:31 11/02/21 05:27 Hydromorphone 1 Mg/1 Ml Inj IV 0.5 mg Q3H PRN Administration Pain , Severe (7-10) Dextrose/Sodium Chloride 1,000 mls @ 100 mls/hr 11/01/21 04:00 11/03/21 04:19 D5/0.45ns IV 100 mls/hr DIRECT HANH Administration Morphine Sulfate 2 mg 11/01/21 03:31 11/03/21 04:17 Morphine 2 Mg/1 Ml Inj IV 2 mg Q4H PRN Administration Pain, Moderate (4-6) Ondansetron HCl 4 mg 11/01/21 03:31 Ondansetron 4 Mg/2 Ml Inj IV Q8H PRN Nausea And Vomiting Oxycodone/Acetaminophen 1 tab 11/02/21 13:10 Oxycodone /Acetaminophen 5-325mg Tab PO Q6H PRN Pain, Moderate (4-6) Sodium Chloride 10 ml 11/01/21 10:00 11/04/21 10:03 Sodium Chloride 0.9% 10 Ml Flush Syringe IV 10 ml BID HANH Administration Sodium Chloride 10 ml 11/01/21 03:31 Sodium Chloride 0.9% 10 Ml Flush Syringe IV PRN PRN LINE FLUSH
--- NOTE | 2021-11-04 15:07 | Event Note ---
Date: 11/04/21 Patient was anxious to go home, I called Dr. Hayes and discussed the discharge planning Okay to [place] home on pain medications, outpatient physical therapy for 6 weeks, 2 weeks work excuse now And additional 4 weeks after the patient sees him in 1 week [total 6 weeks work excuse], instructions to ambulate as tolerated And follow fall precautions. Patient left in a hurry without prescriptions and discharge instructions. 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 They verbalized understanding and agreed with the plan I informed patient's nurse and charge nurse the above arrangements
--- NOTE | 2021-11-04 15:41 | Discharge Summary ---
Providers - Providers Date of Admission: 11/01/21 03:31 Date of discharge: 11/04/21 Attending physician: ARIC NIETO 11/01/21 00:31 Consult to Physician [CONS] Stat Comment: Consulting Provider: LONG BASS Physician Instructions: Reason For Exam: communited tib/fib 11/02/21 13:07 Physical Therapy Evaluation and Treat [CONS] Urgent Comment: Reason For Exam: post-op ankle fracture Mode of Transport?: Crutches Weight bearing status?: Nonwt bearing Assistive devices?: Yes Primary care physician: JACQUARD LOOM WEAVER Hospitalization Condition: Stable Procedures: s/p Closed reduction and application of ex--fix device[[place]] Hospital course: Complex Distal tibia fracture with Medial malleolar fracture incl. plafond fracture with comminution, Right ankle 2transverse fracture lateral malleolus minimal displacement RIGHT ankle Postop diagnosis: Same 1. Same Procedure: Closed reduction and Application of Ex-Fix device (Sneha) --Right lower tibia/fibula fracture Current Visit: Yes Status: Acute Complex atypical medial malleolus fracture: with significant intra-articular involving distal tibia and lateral malleolus fracture with minimal displacement Orthopedic evaluated and recommended surgical stabilization and ORIF for both medial and distal tibial fracture and stabilization for the lateral malleolus fracture as well, Followed by physical therapy However unable to schedule today due to OR scheduling Patient will be scheduled for procedure tomorrow N.p.o. from midnight Postoperative care and PT OT evaluation after surgery --H/O fall Current Visit: Yes Status: Acute Patient is on fall precaution. PT, OT evaluation For surgical procedure --Ongoing tobacco use; Current Visit: Yes Status: Acute Smoking cessation counseling Risks and consequences of long-term smoking discussed with the patient Had many questions answered all of them Smoking cessation counseling +25 minutes --DVT prophylaxis--advance care planning Current Visit: Yes Status: Acute Hold Heparin 5000 units subcu every 12 hours pending procedure SCDs Follow orthopedic surgeon treatment/discharge planning and recommendations DC when cleared by D Disposition: 01 HOME / SELF CARE / HOMELESS Final Discharge Diagnosis (Prints w/discharge instructions): Right lower tibia/fibula fracture. Closed reduction and application of ex--fix device[Sneha]. History of fall/fall precautions. Ongoing tobacco use Time spent for discharge: 35 min Core Measure Documentation - Palliative Care Palliative Care/ Comfort Measures: Not Applicable - Core Measures Any of the following diagnoses?: none Exam - Constitutional Vitals: Temp Pulse Resp BP Pulse Ox 98.0 F 118 H 18 120/77 97 11/04/21 05:43 11/04/21 07:48 11/04/21 10:00 11/04/21 05:43 11/04/21 10:00 General appearance: Present: no acute distress, well-nourished - EENT Eyes: Present: PERRL, EOM intact - Neck Neck: Present: supple, normal ROM - Respiratory Respiratory effort: normal Respiratory: bilateral: diminished, negative: rales, rhonchi, wheezing - Cardiovascular Rhythm: regular Heart Sounds: Present: S1 & S2 - Extremities Extremities: no ischemia, No edema, abnormal (Close reduction / Sneha) - Abdominal General gastrointestinal: Present: soft, non-tender, non-distended, normal bowel sounds - Integumentary Integumentary: Present: clear, warm - Musculoskeletal Musculoskeletal: strength equal bilaterally - Psychiatric Psychiatric: appropriate mood/affect, agitated - Neurologic Neurologic: moves all extremities Plan Activity: advance as tolerated, fall precautions Diet: regular Special Instructions: physical therapy (Patient physical therapy) Additional Instructions: Ambulate as tolerated. 6 weeks outpatient physical therapy. Follow-up with orthopedic surgeon in 1 week. If you have worsening symptoms contact MD or go to the nearest emergency room as needed, Follow-up primary care physician in 5 to 7 days. 2 weeks work excuse starting from 11/05/2021. additional 4 weeks of work excuse when you see orthopedic surgeon Dr. Bass in office 1 week Follow up with: BARBI BLACK MD [Primary Care Provider] - 3-5 Days LONG BASS MD [Staff Physician] - 7 Days Prescriptions: Famotidine [Pepcid] 20 mg PO BID #30 tablet oxyCODONE /ACETAMINOPHEN [Percocet 5/325 mg] 1 tab PO Q8H PRN #21 tablet PRN Reason: Pain, Moderate (4-6) Other Discharge Orders: Physicial Therapy (Amb) Location: None Selected Crutches (Amb) Location: None Selected
== END 2021-11-04 16:55 | disposition left against medical advice (07) | DRG 563 ==
LOC: ED 19:28 → 3A 11-01 03:31
PROVIDERS: ADMIT Hospitalist; ATTEND Internal Medicine
PROC: 0QSGXZZ Reposition Right Tibia, External Approach (ICD-10-PCS; principal; 2021-11-02)
PROC: 0QSJXZZ Reposition Right Fibula, External Approach (ICD-10-PCS; 2021-11-02)
DX: S82.291B Other fracture of shaft of right tibia, initial encounter for open fracture type I or II (principal); S82.491B Other fracture of shaft of right fibula, initial encounter for open fracture type I or II; W18.39XA Other fall on same level, initial encounter; S82.51XA Displaced fracture of medial malleolus of right tibia, initial encounter for closed fracture; Y93.89 Activity, other specified; Y92.89 Other specified places as the place of occurrence of the external cause; Y99.8 Other external cause status
CPT/HCPCS: 36415; 80048; 85025; 94640; 99406; G0378; J3490; J7070; J7120; J0690; J1100; J1170; J1644; J2250; J2270; J2405; J2704; J3010